=== PATIENT | female | born 1975 ===

== ENCOUNTER 2016-07-09 09:27 | Emergency (ER) | payer OTHER ==
[2016-07-09] MEDS ORDERED: cefTRIAXone VIAL(*) 1,000 MG in NS 0.9% 50 ML* 50 ML IVPB ONE (10:00)
[2016-07-09] MEDS ORDERED: Ondansetron INJ* 2 MG/ML VIAL IV ONE (10:00)
[2016-07-09] MEDS ORDERED: Morphine INJ* 2 MG/ML 1 ML CARPUJECT IV ONE ×2 (10:01→10:49)
[2016-07-09] MEDS ORDERED: cefTRIAXone VIAL(*) 1,000 MG VIAL ONE (10:08)
--- NOTE | 2016-07-09 10:13 | UC ---
Complaint Female HPI - HPI Summary HPI Summary: severe right flank pain and dark/malodorous urine. She gets pyelonephritis frequently. No fever. Nausea, no vomiting. Poor appetite. Has had cervical cancer with radiation, which caused a lot of intra-abdominal scarring. Has had two colostomies - History Of Current Complaint Chief Complaint: UCGU Stated Complaint: LOWER BACK PAIN Time Seen by Provider: 07/09/16 09:46 Hx Obtained From: Patient Hx Last Menstrual Period: NO LONGER GETS PERIODS SINCE OCTOBER 2004 Onset/Duration: Gradual Onset, Lasting Days - 3 Timing: Constant Severity Initially: Mild Severity Currently: Severe Character: Sharp Aggravating Factor(s): Urination Alleviating Factor(s): Nothing Associated Signs And Symptoms: Positive: Back Pain, Nausea. Negative: Fever, Vaginal Bleeding/Discharge, Vaginal Discharge Related Hx: Similar Episode/Dx as: - pyelonephritis - Risk Factors Ectopic Risk Factor: Negative Ovarian Torsion Risk Factor: Negative - Allergies/Home Medications Allergies/Adverse Reactions: Allergies Allergy/AdvReac Type Severity Reaction Status Date / Time Eggs or Egg-derived Products Allergy Severe Nausea And Verified 07/09/16 09:35 Vomiting Hydromorphone [From Dilaudid] Allergy Severe Swelling Verified 07/09/16 09:35 Ketorolac Tromethamine Allergy Severe Swelling Verified 07/09/16 09:35 [From Toradol] Home Medications: Home Medications amLODIPine TAB* [Norvasc TAB*] 1 tab PO DAILY 07/09/16 [History Confirmed ] PMH/Surg Hx/FS Hx/Imm Hx Endocrine History Of: Denies: Diabetes, Thyroid Disease Cardiovascular History Of: Reports: Hypertension Denies: Cardiac Disorders Respiratory History Of: Denies: COPD, Asthma GI/ History Of: Denies: Ulcer Cancer History Of: Reports: Cervical Cancer - Surgical History Surgical History: Yes Surgery Procedure, Year, and Place: 2002 TUBAL. 2004 COLOSTOMY. 2006 UROSTEMY (RIGHT SIDE). 2012 GALL BLADDER SURGERY - Family History Known Family History: Positive: Hypertension - Social History Occupation: Employed Full-time Lives: With Family Alcohol Use: None Substance Use Type: None Smoking Status (MU): Heavy Every Day Tobacco Smoker Type: Cigarettes Amount Used/How Often: 1 PPD FOR 20+ YEARS Review of Systems Constitutional: Negative Skin: Negative Eyes: Negative ENT: Negative Respiratory: Negative Cardiovascular: Negative Gastrointestinal: Negative Genitourinary: Dysuria, Hematuria, Frequency, Urgency, Other - right flank pain Motor: Negative Neurovascular: Negative Musculoskeletal: Negative Neurological: Negative Psychological: Negative All Other Systems Reviewed And Are Negative: Yes Physical Exam Triage Information Reviewed: Yes Appearance: Well-Appearing, No Pain Distress, Well-Nourished Vital Signs: Initial Vital Signs Temp 97.9 F 07/09/16 09:37 Pulse 110 07/09/16 09:37 Resp 18 07/09/16 09:37 BP 144/104 07/09/16 09:37 Pulse Ox 98 07/09/16 09:37 Vital Signs Reviewed: Yes Eye Exam: Normal Neck exam: Normal Respiratory Exam: Normal Cardiovascular Exam: Normal Abdomen Description: Positive: CVA Tenderness (R) - marked, Other: - colostomy; mod suprapubic discomfort Bowel Sounds: Positive: Present Musculoskeletal Exam: Normal Neurological Exam: Normal Psychological Exam: Normal Skin Exam: Normal Diagnostics - Laboratory Diagnostic Studies Completed/Ordered: U/A dip positive for infection markers Complaint Female Dx - Differential Dx/Diagnosis Differential Diagnosis/HQI/PQRI: Urinary Tract Infection Provider Diagnoses: pyelonephritis Discharge - Discharge Plan Condition: Stable Disposition: HOME Prescriptions: Cephalexin CAP* [Keflex CAP*] 500 mg PO TID #30 cap Ondansetron ODT TAB* [Zofran Odt TAB*] 4 mg PO Q8H PRN #7 tab.odt PRN Reason: Nausea Patient Education Materials: Acute Pyelonephritis (ED) Referrals: No Primary Care Phys,NOPCP [Primary Care Provider] -
== END 2016-07-09 11:13 | disposition home or self-care (01) ==
LOC: UCEAST 09:27
DX: N10 Acute pyelonephritis (principal); B96.89 Other specified bacterial agents as the cause of diseases classified elsewhere; Z85.41 Personal history of malignant neoplasm of cervix uteri; Z92.3 Personal history of irradiation; Z86.19 Personal history of other infectious and parasitic diseases; F17.210 Nicotine dependence, cigarettes, uncomplicated
CPT/HCPCS: 81002; 87077; 87086; 87186; 96365; 96374; 96376; 99202; G0463; J0696; J2270; J2405